=== PATIENT | female | born 1950 | race Caucasian/White ===

== ENCOUNTER 2016-11-06 12:48 | Emergency (ER) | payer OTHER ==
--- NOTE | 2016-11-06 15:56 | ED NURSING NOTES ---
Clinical Report - Nurses [facility] [place] [address] 11/06/2016 12:56 [id number] TRI[facility] Triage time 13:Nov 06 2016. Acuity: LEVEL 3. Chief Complaint: ABDOMINAL PAIN. Alert. MELISSA COMA SCORE: [place] Coma Scale: 15- eyes open spontaneously (4); best verbal response- oriented x 4 (5); best motor response- obeys commands (6). --13:18 Bola Jones R.N. 13:06 11/06/16. BP: 179/99. HR: 95. RR: 16. O2 saturation: 95% on room air. Temp: 97.9 F (oral). Pain level now: 10. --13:18 Bola Jones R.N. Weight: 127 kg stated. Height/Length: 63 inches Per Patient. BMI: 49.6. --13:07 Bola Jones R.N. Medications Abilify Oral (Tablet 10 mg) 1 tablet, daily. Effexor XR Oral 75 mg x 2 daily. --13:10 Bola Jones R.N. Lisinopril Oral 30 mg, daily. --13:10 Bola Jones R.N. Allergies Codeine. Moderate(nausea) Compazine. Definite Severe(Anaphylaxis) --13:13 Bola Jones R.N. Medication/allergy information source: the patient. --13:18 Bola Jones R.N. History Arrived by private vehicle. Historian: patient. Unaccompanied. Primary physician (Cayla ). ( (R) Flank Pain.). Onset. (about 3 days ago). Last oral intake by patient was (about 6 hours ago). Treatment [employer] GIN: None. PAST MEDICAL HX: Immunizations: status is unknown. The patient is post-menopausal. SOCIAL HX: Former smoker, end date 2000. History of drug use: marijuana. No alcohol use. No recent travel. No infectious disease exposure. ABUSE ASSESSMENT: No report of abuse. FALL RISK ASSESSMENT: Fall risk assessment completed. No fall risk identified. NUTRITIONAL RISK ASSESSMENT: The nutritional risk assessment revealed no deficiencies. FUNCTIONAL ASSESSMENT: Functional assessment: no impairments noted. LEARNING NEEDS ASSESSMENT: The learning needs assessment revealed no barriers. SKIN INTEGRITY ASSESSMENT: Skin integrity risk assessment completed. No skin integrity risk identified. --13:18 Bola Jones R.N. PROBLEMS: Bipolar Disorder. --13:15 Bola Jones R.N. ADDITIONAL SURGERIES: . Lap Banding. --13:15 Bola Jones R.N. Interventions ID band on patient. To treatment room. --13:18 Bola Jones R.N. PHYSICAL ASSESSMENT Ambulatory to room. GENERAL / NEURO / PSYCH: Alert. Oriented X 4. HEENT: Mucous membranes are pink. RESPIRATORY: Respirations not labored. CVS: Normal sinus rhythm noted. GI / : Abdomen soft. Bowel sounds within normal limits. SKIN: Skin is warm and dry. --13:19 Bola Jones R.N. NURSING PROGRESS NOTES Patient gowned. Reassurance given to the patient. Patient identifiers checked. Call light placed in reach. Side rails up x 1. Patient ready for evaluation- chart flagged and ED physician notified. --13:19 Bola Jones R.N. 13:43 11/06/2016 Started bag #1 1000 mL IV Fluids IV NS (Saline); at 1000 mL/hr over 60 minute(s) via site #1 via IV pump. Allergies verified and confirmed 5 rights. IV patency established. IV site checked: no pain, redness, or swelling. IV flushed thoroughly pre- and post-medication administration. --14:09 Bola Jones R.N. 13:53 11/06/2016 Site #1 started via IV in the right forearm with an 20g angiocath, with aseptic technique and good blood return; one attempt. Blood drawn: rainbow set. Labeled in the presence of the patient and sent to the lab. Saline lock flushed with 10 mL saline. --14:08 Bola Jones R.N. 14:10 11/06/2016 Toradol IVP 30 mg given over 2 minute(s) via site #1. Allergies verified and confirmed 5 rights. IV patency established. IV site checked: no pain, redness, or swelling. IV flushed thoroughly pre- and post-medication administration. IVP given by RN. --14:10 Bola Jones R.N. 14:58 11/06/16. BP: 140/85. HR: 84. RR: 16. O2 saturation: 98% on room air. --14:59 Bola Jones R.N. 17:03 11/06/2016 IV Fluids IV NS Discontinued: bag #1 infused. Total amount infused: 1000 mL. IV patency established. IV site checked: no pain, redness, or swelling. IV flushed thoroughly. --17:13 Rusty Connolly R.N. 17:07 11/06/2016 Hydrocodone-APAP (Hydrocodone-Acetaminophen) PO 5/325 mg Tablets 1 tab given. Allergies verified, confirmed 5 rights and sedative warning given to the patient. --17:12 Rusty Connolly R.N. DISPOSITION / DISCHARGE 17:05 11/06/2016 Site #1 removed upon discharge. Bandaid applied. --17:10 Rusty Connolly R.N. No learning barriers present. Discharge instructions provided and reviewed with the patient. Reviewed medication(s) side effects, dosing and course information. Prescription(s) given to the patient. Patient verbalized understanding. Written instructions provided in Telugu. The patient was discharged by the nurse practitioner. She was discharged home. She left the Emergency Department ambulatory and via private vehicle. ( PT dc only by this RN). --17:11 Rusty Connolly R.N. 17:10 11/06/16. BP: 153/74. HR: 84. RR: 15. O2 saturation: 98%. Temp: 97.8 F. Pain level now: 09/25. --17:11 Rusty Connolly R.N. Locked/Released at 11/06/2016 20:51 by Bola Jones R.N.
--- NOTE | 2016-11-06 15:56 | ED ORDER SUMMARY ---
..... Patient: DONNA GUZMAN OrderSheet [facility] VisitID: [id number] [address] [place] [address] 65y, F Registration Date/Time: 11/06/2016 ORDER SHEET Weight: 127.0 kg (stated) Allergies: Codeine, Compazine GENERAL ORDERS: CBC w Diff Urgent (14:00 11/06/2016 HBivens A.R.N.P.) (Ack 14:02 LNations ER Tech1) (14:09 JRomanelli R.N.) CMP Urgent (14:00 11/06/2016 HBivens A.R.N.P.) (Ack 14:03 LNations ER Tech1) (14:09 JRomanelli R.N.) UA-Culture if indicated Urgent (14:00 11/06/2016 HBivens A.R.N.P.) (Ack 14:03 LNations ER Tech1) (14:55 JRomanelli R.N.) Amylase Urgent (14:00 11/06/2016 HBivens A.R.N.P.) (Ack 14:03 LNations ER Tech1) (14:09 JRomanelli R.N.) Lipase Urgent (14:00 11/06/2016 HBivens A.R.N.P.) (Ack 14:03 LNations ER Tech1) (14:09 JRomanelli R.N.) CT Abd/Pel w Cont (No) (normal) Urgent (16:12 11/06/2016 HBivens A.R.N.P.) (Ack 16:13 LNations ER Tech1) (16:43 Johan) MEDICATION ORDERS: Hydrocodone-APAP PO 5/325 mg (NOW, HIGH ALERT MEDICATION) (16:56 11/06/2016 HBivens A.R.N.P.) (17:12 LennyKudesiree R.N.) IV FLUIDS: IV NS : initial bolus 1000 mL (1000 mL/hr), then none - (NOW) (14:00 11/06/2016 HBivens A.R.N.P.) (14:09 JRomanelli R.N.) Toradol IV 30 mg (NOW) (14:00 11/06/2016 SCOUTivens A.R.N.P.) (14:10 Christo R.N.) IV Saline Lock (14:00 11/06/2016 HBivens A.R.N.P.) (14:57 Christo R.N.) ORDER SHEET NOTES: [Electronically signed by Bola Jones R.N. (20:51 11/06/2016)] [Electronically signed by Nilsa KleinRSulmaN.PSulma (20:53 11/06/2016)] [Electronically locked/signed by Bola Jones R.N. (20:51 11/06/2016)]
--- NOTE | 2016-11-06 15:56 | ED NURSING NOTES ---
Clinical Report - Nurses [facility] [place] [address] 11/06/2016 12:56 [id number] TRI[facility] Triage time 13:Nov 06 2016. Acuity: LEVEL 3. Chief Complaint: ABDOMINAL PAIN. Alert. MELISSA COMA SCORE: [place] Coma Scale: 15- eyes open spontaneously (4); best verbal response- oriented x 4 (5); best motor response- obeys commands (6). --13:18 Bola Jones R.N. 13:06 11/06/16. BP: 179/99. HR: 95. RR: 16. O2 saturation: 95% on room air. Temp: 97.9 F (oral). Pain level now: 10. --13:18 Bola Jones R.N. Weight: 127 kg stated. Height/Length: 63 inches Per Patient. BMI: 49.6. --13:07 Bola Jones R.N. Medications Abilify Oral (Tablet 10 mg) 1 tablet, daily. Effexor XR Oral 75 mg x 2 daily. --13:10 Bola Jones R.N. Lisinopril Oral 30 mg, daily. --13:10 Bola Jones R.N. Allergies Codeine. Moderate(nausea) Compazine. Definite Severe(Anaphylaxis) --13:13 Bola Jones R.N. Medication/allergy information source: the patient. --13:18 Bola Jones R.N. History Arrived by private vehicle. Historian: patient. Unaccompanied. Primary physician (Cayla [place], [place]). ( (R) Flank Pain.). Onset. (about 3 days ago). Last oral intake by patient was (about 6 hours ago). 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 PAST MEDICAL HX: Immunizations: status is unknown. The patient is post-menopausal. SOCIAL HX: Former smoker, end date 2000. History of drug use: marijuana. No alcohol use. No recent travel. No infectious disease exposure. ABUSE ASSESSMENT: No report of abuse. FALL RISK ASSESSMENT: Fall risk assessment completed. No fall risk identified. NUTRITIONAL RISK ASSESSMENT: The nutritional risk assessment revealed no deficiencies. FUNCTIONAL ASSESSMENT: Functional assessment: no impairments noted. LEARNING NEEDS ASSESSMENT: The learning needs assessment revealed no barriers. SKIN INTEGRITY ASSESSMENT: Skin integrity risk assessment completed. No skin integrity risk identified. --13:18 Bola Jones R.N. PROBLEMS: Bipolar Disorder. --13:15 Bola Jones R.N. ADDITIONAL SURGERIES: . Lap Banding. --13:15 Bola Jones R.N. Interventions ID band on patient. To treatment room. --13:18 Bola Jones R.N. PHYSICAL ASSESSMENT Ambulatory to room. GENERAL / NEURO / PSYCH: Alert. Oriented X 4. HEENT: Mucous membranes are pink. RESPIRATORY: Respirations not labored. CVS: Normal sinus rhythm noted. GI / : Abdomen soft. Bowel sounds within normal limits. SKIN: Skin is warm and dry. --13:19 Bola Jones R.N. NURSING PROGRESS NOTES Patient gowned. Reassurance given to the patient. Patient identifiers checked. Call light placed in reach. Side rails up x 1. Patient ready for evaluation- chart flagged and ED physician notified. --13:19 Bola Jones R.N. 13:43 11/06/2016 Started bag #1 1000 mL IV Fluids IV NS (Saline); at 1000 mL/hr over 60 minute(s) via site #1 via IV pump. Allergies verified and confirmed 5 rights. IV patency established. IV site checked: no pain, redness, or swelling. IV flushed thoroughly pre- and post-medication administration. --14:09 Bola Jones R.N. 13:53 11/06/2016 Site #1 started via IV in the right forearm with an 20g angiocath, with aseptic technique and good blood return; one attempt. Blood drawn: rainbow set. Labeled in the presence of the patient and sent to the lab. Saline lock flushed with 10 mL saline. --14:08 Bola Jones R.N. 14:10 11/06/2016 Toradol IVP 30 mg given over 2 minute(s) via site #1. Allergies verified and confirmed 5 rights. IV patency established. IV site checked: no pain, redness, or swelling. IV flushed thoroughly pre- and post-medication administration. IVP given by RN. --14:10 Bola Jones R.N. 14:58 11/06/16. BP: 140/85. HR: 84. RR: 16. O2 saturation: 98% on room air. --14:59 Bola Jones R.N. 17:03 11/06/2016 IV Fluids IV NS Discontinued: bag #1 infused. Total amount infused: 1000 mL. IV patency established. IV site checked: no pain, redness, or swelling. IV flushed thoroughly. --17:13 Rusty Connolly R.N. 17:07 11/06/2016 Hydrocodone-APAP (Hydrocodone-Acetaminophen) PO 5/325 mg Tablets 1 tab given. Allergies verified, confirmed 5 rights and sedative warning given to the patient. --17:12 Rusty Connolly R.N. DISPOSITION / DISCHARGE 17:05 11/06/2016 Site #1 removed upon discharge. Bandaid applied. --17:10 Rusty Connolly R.N. No learning barriers present. Discharge instructions provided and reviewed with the patient. Reviewed medication(s) side effects, dosing and course information. Prescription(s) given to the patient. Patient verbalized understanding. Written instructions provided in Turkmen. The patient was discharged by the nurse practitioner. She was discharged home. She left the Emergency Department ambulatory and via private vehicle. ( PT dc only by this RN). --17:11 Rusty Connolly R.N. 17:10 11/06/16. BP: 153/74. HR: 84. RR: 15. O2 saturation: 98%. Temp: 97.8 F. Pain level now: 09/25. --17:11 Rusty Connolly R.N. Locked/Released at 11/06/2016 20:51 by Bola Jones R.N.
--- NOTE | 2016-11-06 15:56 | ED CLINICAL REPORT ---
Clinical Report - Physicians/Mid Levels [facility] [address] [place] [address] 11/06/2016 12:56 Patient: DONNA GUZMAN Time Seen: 13:30; initial patient contact, initial documentation, patient care assumed. Arrived- By private vehicle. Historian- patient. HISTORY OF PRESENT ILLNESS Chief Complaint: FLANK PAIN. At its maximum, severity described as severe. When seen in the E.D., severity described as severe. Modifying factors- worsened by movement, cough and deep breaths. Not relieved by anything. This started about 3 days ago and is still present. It was abrupt in onset and has been constant. It is described as "pain". No radiation. It is described as located in the right flank. No nausea, loss of appetite, vomiting or diarrhea. (possibly tweaked something on that side after sleeping funny on pillow). No recent travel. Similar symptoms previously: None. Recent medical care: Not recently seen/assessed. REVIEW OF SYSTEMS No constipation, black stools, hematemesis, difficulty with urination or pain with urination. No urinary frequency, fever, chest pain or difficulty breathing. Denies current . All systems otherwise negative, except as recorded above. PAST HISTORY See nurses notes. PROBLEMS: Bipolar Disorder. --13:15 Bola Jones R.N. ADDITIONAL SURGERIES: . Lap Banding. --13:15 Bola Jones RShanta. SOCIAL HISTORY Former smoker. History of occasional drug use: marijuana. No alcohol use. No recent travel. Is a local resident. FAMILY HISTORY Negative. ADDITIONAL NOTES The nursing notes have been reviewed with agreement regarding the chief complaint, HPI, ROS, PMH and patient medications and allergies. PHYSICAL EXAM Vital Signs: 11/06/2016 13:06 BP: 179/99. HR: 95. RR: 16. O2 saturation: 95%. Temp: 97.9 F. Pain level now: 5/10. Have been reviewed as abnormal and appear to be correct. Hypertensive. Heart rate normal. Respiratory rate normal. Temperature normal. Oxygen saturation normal. Appearance: Alert. Oriented X3. No acute distress. Eyes: Pupils equal, round and reactive to light. Eyes normal inspection. Neck: Normal inspection. Neck supple. CVS: Normal heart rate and rhythm. Heart sounds normal. Pulses normal. Respiratory: No respiratory distress. Breath sounds normal. Chest nontender. Abdomen: Soft and nontender. Bowel sounds normal. No organomegaly. No mass. Moderately obese. Back: Abnormal inspection. (decreased rom secondary to pain, limited flexion). Skin: Skin warm and dry. Normal skin color. No rash. Normal skin turgor. Extremities: Extremities exhibit normal ROM. No lower extremity edema. Neuro: Oriented X 3. No motor deficit. No sensory deficit. LABS, X-RAYS, AND EKG Abdominal CT: No acute disease. IMPRESSION: 1. Normal appendix 2. Mild bilateral renal cortical atrophy 3. Mild sigmoid diverticulosis 4. Status post lap band procedure and hysterectomy 5. Results discussed with Nilsa Klein. All CT scans at this facility use dose modulation, iterative reconstruction, and/or weight-based dosing when appropriate to reduce radiation dose to as low as reasonably achievable. Electronically Final signed by:Filemon Campbell MD 11/06/2016 4:52:34 PM. The study was interpreted by the radiologist and discussed with the radiologist. Interpretation time: 16:52. Laboratory Tests: UA-Culture if indicated: (CONY: 11/06/2016 14:45) ( MsgRcvd 11/06/2016 15:35) Final results Test Result Flag Units (Reference) URINE COLOR YELLOW URINE APPEARANCE CLEAR URINE GLUCOSE NEGATIVE (NEGATIVE) URINE BILIRUBIN NEGATIVE (NEGATIVE) URINE KETONE NEGATIVE (NEGATIVE) URINE SPECIFIC GRAVITY 1.020 (1.010-1.030) URINE PH 7.5 (5.0-8.0) URINE PROTEIN NEGATIVE (NEGATIVE) URINE UROBILINOGEN 0.2 EU/dL (0.2-1.0) URINE NITRITE NEGATIVE (NEGATIVE) URINE BLOOD NEGATIVE (NEGATIVE) URINE LEUK ESTERASE NEGATIVE (NEGATIVE) URINE RBC 0-1 rbc/hpf (0-1) URINE WBC 1-3 wbc/hpf (0-1) URINE EPITHELIAL CELLS 3-5 EPI/hpf (0-5) URINE BACTERIA FEW (1+) (NONE SEEN) URINE COMMENT CULT NOT INDICATED URINE CULTURES ARE SET-UP BASED ON THE FOLLOWING CRITERIA:POSITIVE NITRITEPOSITIVE LEUKOCYTE ESTERASEGREATER THAN 10 WHITE BLOOD CELLSMODERATE (2+) OR GREATER BACTERIA CBC w Diff: (CONY: 11/06/2016 13:30) ( [facility] 11/06/2016 14:08) Final results Test Result Flag Units (Reference) WHITE BLOOD COUNT 12.5 H K/uL (4.5-11.5) RED BLOOD COUNT 4.38 M/uL (4.00-5.20) HEMOGLOBIN 13.0 gm/dL (12.0-16.0) HEMATOCRIT 40.2 % (36.0-46.0) MEAN CELL VOLUME 92 fL (80-100) MEAN CORPUSCULAR HGB 30 pg (26-34) MEAN CORPUSCULAR HGB CONC 32 g/dL (31-37) RED CELL DISTRIBUTION WIDTH 15.3 H % (11.6-14.8) PLATELET COUNT 325 K/uL (150-400) NEUTROPHIL % 81.4 H % (50-75) LYMPH % 15.3 L % (25-40) MONO % 2.4 L % (3-14) EOSINOPHIL % 0.5 % (0-4) BASOPHIL % 0.4 % (0-2) CMP: (CONY: 11/06/2016 13:30) ( [facility] 11/06/2016 14:19) Final results Test Result Flag Units (Reference) GLUCOSE 127 H mg/dL (70-110) BUN 15 mg/dL (7-18) CREATININE 1.0 mg/dL (0.6-1.3) Estimated GFR 59.33 mL/min Estimated GFR- >60 mL/min Note: Persistent reduction over 3 months in eGFR<60 mL/min/1.73 m2 defines CKD. Patients with eGFR values>=60 mL/min/1.73 m2 may also have CKD if evidence ofpersistent proteinuria. Additional information may be foundat www.kidney.org. SODIUM 143 mmol/L (136-145) POTASSIUM 4.5 mmol/L (3.5-5.1) CHLORIDE 105 mmol/L (98-107) CARBON DIOXIDE 29 mmol/L (21-32) CALCIUM 9.1 mg/dL (8.5-10.1) TOTAL PROTEIN 6.7 g/dL (6.4-8.2) ALBUMIN 3.4 g/dL (3.3-5.0) BILIRUBIN, TOTAL 0.3 mg/dL (0.0-1.0) ALKALINE PHOSPHATASE 107 U/L (46-116) AST (SGOT) 15 U/L (15-37) ALT (SGPT) 18 U/L (12-78) LIPASE 231 U/L (73-393) AMYLASE 44 U/L (25-115) . PROGRESS AND PROCEDURES Course of Care: 1500. still no urine, asked nurse to cath pt for ua results and tx options discussed on whether to do ct or not, pt does not want to stay for ct, has to get home to help take care of blind father, agreed to return if anything changed, stated the med I gave her instantly took away her pain, she can move and twist now without hurting nurse Bola informing me that he spoke to pt and got her to change her mind about ct, because he overheard her on phone telling someone we didn't know what was wrong with her. 11/06/2016 14:58 BP: 140/85. HR: 84. RR: 16. O2 saturation: 98%. Vital Signs: have been reviewed as normal and appear to be correct. Patient counseled in person regarding the patient's stable condition, test results and diagnosis. 16:52. Differential Diagnosis: I considered gastritis, gastroenteritis, peptic ulcer disease, gastroesophageal reflux disease, acute appendicitis, diverticulitis, colon cancer, ulcerative colitis, Crohn's disease, biliary colic, cholecystitis, cholelithiasis, hepatitis, pancreatitis, common bile duct obstruction, urinary tract infection, ureterolithiasis and viral syndrome as a possible cause of abdominal pain in this patient. This is a partial list of diagnoses considered. Above considerations are based on history, physical exam, reassessment and laboratory data. Differential diagnosis was discussed with patient. Disposition: Discharged home in good and improved condition (15:55). Condition: good and stable. CLINICAL IMPRESSION Acute right flank pain INSTRUCTIONS Warnings: GENERAL WARNINGS: Return or contact your physician immediately if your condition worsens or changes unexpectedly, if not improving as expected, or if other problems arise. SPECIFICALLY, return if you develop pain in the abdomen or pelvis, fever, the inability to keep fluids down, blood in vomitus, blood in diarrhea, fainting or lightheadedness. Prescription Medications: Ultram 50 mg tablets: take 1-2 orally every 6 hours as needed for pain. Dispense twenty (20). No refills. Substitution is permissible. Follow-up: Follow up with your doctor in about two days even if well. Call for an appointment. Summary of care provided to patient. Understanding of the discharge instructions verbalized by patient. (Electronically signed by Nilsa Klein A.R.N.P. 11/06/2016 20:53)
--- NOTE | 2016-11-06 15:56 | ED ORDER SUMMARY ---
..... Patient: DONNA GUZMAN OrderSheet [facility] VisitID: [id number] [address] [place] [address] 65y, F Registration Date/Time: 11/06/2016 ORDER SHEET Weight: 127.0 kg (stated) Allergies: Codeine, Compazine GENERAL ORDERS: CBC w Diff Urgent (14:00 11/06/2016 HBivens A.R.N.P.) (Ack 14:02 LNations ER Tech1) (14:09 JRomanelli R.N.) CMP Urgent (14:00 11/06/2016 HBivens A.R.N.P.) (Ack 14:03 LNations ER Tech1) (14:09 JRomanelli R.N.) UA-Culture if indicated Urgent (14:00 11/06/2016 HBivens A.R.N.P.) (Ack 14:03 LNations ER Tech1) (14:55 JRomanelli R.N.) Amylase Urgent (14:00 11/06/2016 HBivens A.R.N.P.) (Ack 14:03 LNations ER Tech1) (14:09 JRomanelli R.N.) Lipase Urgent (14:00 11/06/2016 HBivens A.R.N.P.) (Ack 14:03 LNations ER Tech1) (14:09 JRomanelli R.N.) CT Abd/Pel w Cont (No) (normal) Urgent (16:12 11/06/2016 HBivens A.R.N.P.) (Ack 16:13 LNations ER Tech1) (16:43 Johan) MEDICATION ORDERS: Hydrocodone-APAP PO 5/325 mg (NOW, HIGH ALERT MEDICATION) (16:56 11/06/2016 HBivens A.R.N.P.) (17:12 LennyKudesiree R.N.) IV FLUIDS: IV NS : initial bolus 1000 mL (1000 mL/hr), then none - (NOW) (14:00 11/06/2016 HBivens A.R.N.P.) (14:09 JRomanelli R.N.) Toradol IV 30 mg (NOW) (14:00 11/06/2016 SCOUTivens A.R.N.P.) (14:10 Christo R.N.) IV Saline Lock (14:00 11/06/2016 HBivens A.R.N.P.) (14:57 Christo R.N.) ORDER SHEET NOTES: [Electronically signed by Bola Jones R.N. (20:51 11/06/2016)] [Electronically signed by Nilsa KleinRSulmaN.PSulma (20:53 11/06/2016)] [Electronically locked/signed by Bola Jones R.N. (20:51 11/06/2016)]
--- NOTE | 2016-11-06 16:53 | DIAGNOSTIC IMAGING REPORT ---
PROCEDURE: CT ABD/PELVIS WITH CONTRAST CLINICAL INDICATION: Right flank and lower quadrant pain. TECHNIQUE: 145 ml of Isovue 300 were injected intravenously and axial images were obtained of the entire abdomen and pelvis with sagittal and coronal reformations. COMPARISON: None. FINDINGS: Minor bibasilar scarring. Heart size is normal. ABDOMEN: Status post lap band procedure. Liver, gallbladder, pancreas, spleen and adrenal glands are normal. Mild bilateral renal cortical atrophy. No evidence of renal mass or hydronephrosis. Minor atherosclerosis. Nonspecific bowel gas pattern. PELVIS: Normal appendix. Mild sigmoid diverticulosis. Hysterectomy. Normal bladder. No pelvic mass, inflammatory changes or free fluid. Mild degenerative changes of the spine. IMPRESSION: 1. Normal appendix 2. Mild bilateral renal cortical atrophy 3. Mild sigmoid diverticulosis 4. Status post lap band procedure and hysterectomy 5. Results discussed with Nilsa Klein. All CT scans at this facility use dose modulation, iterative reconstruction, and/or weight-based dosing when appropriate to reduce radiation dose to as low as reasonably achievable.
--- NOTE | 2016-11-06 20:53 | ED DISCHARGE INSTRUCTIONS ---
Patient: DONNA GUZMAN General Instructions [facility] VisitID: [id number] [place] [address] 65y, F Registration Date/Time: 11/06/2016 Acute right flank pain INSTRUCTIONS Warnings: GENERAL WARNINGS: Return or contact your physician immediately if your condition worsens or changes unexpectedly, if not improving as expected, or if other problems arise. SPECIFICALLY, return if you develop pain in the abdomen or pelvis, fever, the inability to keep fluids down, blood in vomitus, blood in diarrhea, fainting or lightheadedness. Prescription Medications: Ultram 50 mg tablets: take 1-2 orally every 6 hours as needed for pain. Dispense twenty (20). No refills. Substitution is permissible. Follow-up: Follow up with your doctor in about two days even if well. Call for an appointment. Summary of care provided to patient. Understanding of the discharge instructions verbalized by patient. ADDITIONAL INFORMATION Flank Pain[Uncertain Cause] The flank is the area between the upper abdomen and the back. Pain here is often related to the kidneyan infection or a kidney stone. Other causes of flank pain include spinal arthritis, pinched nerve from a disk injury, back muscle strain or spasm. The cause of your flank pain is not certain and further tests may be needed. Home Care: You may use acetaminophen (Tylenol) or ibuprofen (Motrin, Advil) to control pain, unless another medicine was prescribed. [NOTE: If you have chronic liver or kidney disease or ever had a stomach ulcer or GI bleeding, talk with your doctor before using these medicines.] If the cause of your pain is coming from the muscles, ice or heat may give relief. During the first two days after injury, apply an ICE PACK to the painful area for 20 minutes every 2-4 hours. This will reduce swelling and pain. HEAT (hot shower, hot bath or heating pad) works well for muscle spasm. You can start with ice, then switch to heat after two days. Some patients feel best alternating ice and heat treatments. Use the one method that feels the best to you. Follow Up with your doctor or as advised by our staff for further evaluation if your symptoms are not improving over the next few days. Return Promptly or contact your doctor if any of the following occur: Repeated vomiting Fever of 100.4F (38C) or higher, or as directed by your healthcare provider Increasing flank pain Pain that spreads to the front of the abdomen Dizziness, weakness or fainting Blood in your urine Burning with urination or frequent urination Increasing pain in the leg Numbness or weakness in the leg Tramadol Hydrochloride Oral tablet What is this medicine? TRAMADOL (TRA ma dole) is a pain reliever. It is used to treat moderate to severe pain in adults. How should I use this medicine? Take this medicine by mouth with a full glass of water. Follow the directions on the prescription label. If the medicine upsets your stomach, take it with food or milk. Do not take more medicine than you are told to take. Talk to your bleach boiler puller regarding the use of this medicine in children. Special care may be needed. What side effects may I notice from receiving this medicine? Side effects that you should report to your doctor or health morning caregiver as soon as possible: allergic reactions like skin rash, itching or hives, swelling of the face, lips, or tongue breathing difficulties, wheezing confusion itching light headedness or fainting spells redness, blistering, peeling or loosening of the skin, including inside the mouth seizures Side effects that usually do not require medical attention (report to your doctor or health morning caregiver if they continue or are bothersome): constipation dizziness drowsiness headache nausea, vomiting What may interact with this medicine? Do not take this medicine with any of the following medications: MAOIs like Carbex, Eldepryl, Marplan, Nardil, and Parnate This medicine may also interact with the following medications: alcohol or medicines that contain alcohol antihistamines benzodiazepines bupropion carbamazepine or oxcarbazepine clozapine cyclobenzaprine digoxin furazolidone linezolid medicines for depression, anxiety, or psychotic disturbances medicines for migraine headache like almotriptan, eletriptan, frovatriptan, naratriptan, rizatriptan, sumatriptan, zolmitriptan medicines for pain like pentazocine, buprenorphine, butorphanol, meperidine, nalbuphine, and propoxyphene medicines for sleep muscle relaxants naltrexone phenobarbital phenothiazines like perphenazine, thioridazine, chlorpromazine, mesoridazine, fluphenazine, prochlorperazine, promazine, and trifluoperazine procarbazine warfarin What if I miss a dose? If you miss a dose, take it as soon as you can. If it is almost time for your next dose, take only that dose. Do not take double or extra doses. Where should I keep my medicine? Keep out of the reach of children. Store at room temperature between 15 and 30 degrees C (59 and 86 degrees F). Keep container tightly closed. Throw away any unused medicine after the expiration date. What should I tell my health care provider before I take this medicine? They need to know if you have any of these conditions: brain tumor depression drug abuse or addiction head injury if you frequently drink alcohol containing drinks kidney disease or trouble passing urine liver disease lung disease, asthma, or breathing problems seizures or epilepsy suicidal thoughts, plans, or attempt; a previous suicide attempt by you or a family member an unusual or allergic reaction to tramadol, codeine, other medicines, foods, dyes, or preservatives or trying to get breast-feeding What should I watch for while using this medicine? Tell your doctor or health morning caregiver if your pain does not go away, if it gets worse, or if you have new or a different type of pain. You may develop tolerance to the medicine. Tolerance means that you will need a higher dose of the medicine for pain relief. Tolerance is normal and is expected if you take this medicine for a long time. Do not suddenly stop taking your medicine because you may develop a severe reaction. Your body becomes used to the medicine. This does NOT mean you are addicted. Addiction is a behavior related to getting and using a drug for a non-medical reason. If you have pain, you have a medical reason to take pain medicine. Your doctor will tell you how much medicine to take. If your doctor wants you to stop the medicine, the dose will be slowly lowered over time to avoid any side effects. You may get drowsy or dizzy. Do not drive, use machinery, or do anything that needs mental alertness until you know how this medicine affects you. Do not stand or sit up quickly, especially if you are an older patient. This reduces the risk of dizzy or fainting spells. Alcohol can increase or decrease the effects of this medicine. Avoid alcoholic drinks. You may have constipation. Try to have a bowel movement at least every 2 to 3 days. If you do not have a bowel movement for 3 days, call your doctor or health morning caregiver. Your mouth may get dry. Chewing sugarless gum or sucking hard candy, and drinking plenty of water may help. Contact your doctor if the problem does not go away or is severe. You have been given the following additional information: Flank Pain, Uncertain Cause Tramadol Hydrochloride Oral tablet (Electronically signed by Nilsa Klein A.R.N.P. 11/06/2016 20:53)
--- NOTE | 2016-11-06 20:53 | ED DISCHARGE INSTRUCTIONS ---
Patient: DONNA GUZMAN General Instructions [facility] VisitID: [id number] [place] [address] 65y, F Registration Date/Time: 11/06/2016 Acute right flank pain INSTRUCTIONS Warnings: GENERAL WARNINGS: Return or contact your physician immediately if your condition worsens or changes unexpectedly, if not improving as expected, or if other problems arise. SPECIFICALLY, return if you develop pain in the abdomen or pelvis, fever, the inability to keep fluids down, blood in vomitus, blood in diarrhea, fainting or lightheadedness. Prescription Medications: Ultram 50 mg tablets: take 1-2 orally every 6 hours as needed for pain. Dispense twenty (20). No refills. Substitution is permissible. Follow-up: Follow up with your doctor in about two days even if well. Call for an appointment. Summary of care provided to patient. Understanding of the discharge instructions verbalized by patient. ADDITIONAL INFORMATION Flank Pain[Uncertain Cause] The flank is the area between the upper abdomen and the back. Pain here is often related to the kidneyan infection or a kidney stone. Other causes of flank pain include spinal arthritis, pinched nerve from a disk injury, back muscle strain or spasm. The cause of your flank pain is not certain and further tests may be needed. Home Care: You may use acetaminophen (Tylenol) or ibuprofen (Motrin, Advil) to control pain, unless another medicine was prescribed. [NOTE: If you have chronic liver or kidney disease or ever had a stomach ulcer or GI bleeding, talk with your doctor before using these medicines.] If the cause of your pain is coming from the muscles, ice or heat may give relief. During the first two days after injury, apply an ICE PACK to the painful area for 20 minutes every 2-4 hours. This will reduce swelling and pain. HEAT (hot shower, hot bath or heating pad) works well for muscle spasm. You can start with ice, then switch to heat after two days. Some patients feel best alternating ice and heat treatments. Use the one method that feels the best to you. Follow Up with your doctor or as advised by our staff for further evaluation if your symptoms are not improving over the next few days. Return Promptly or contact your doctor if any of the following occur: Repeated vomiting Fever of 100.4F (38C) or higher, or as directed by your healthcare provider Increasing flank pain Pain that spreads to the front of the abdomen Dizziness, weakness or fainting Blood in your urine Burning with urination or frequent urination Increasing pain in the leg Numbness or weakness in the leg Tramadol Hydrochloride Oral tablet What is this medicine? TRAMADOL (TRA ma dole) is a pain reliever. It is used to treat moderate to severe pain in adults. How should I use this medicine? Take this medicine by mouth with a full glass of water. Follow the directions on the prescription label. If the medicine upsets your stomach, take it with food or milk. Do not take more medicine than you are told to take. Talk to your exerciser horse regarding the use of this medicine in children. Special care may be needed. What side effects may I notice from receiving this medicine? Side effects that you should report to your doctor or health critical care cns as soon as possible: allergic reactions like skin rash, itching or hives, swelling of the face, lips, or tongue breathing difficulties, wheezing confusion itching light headedness or fainting spells redness, blistering, peeling or loosening of the skin, including inside the mouth seizures Side effects that usually do not require medical attention (report to your doctor or health critical care cns if they continue or are bothersome): constipation dizziness drowsiness headache nausea, vomiting What may interact with this medicine? Do not take this medicine with any of the following medications: MAOIs like Carbex, Eldepryl, Marplan, Nardil, and Parnate This medicine may also interact with the following medications: alcohol or medicines that contain alcohol antihistamines benzodiazepines bupropion carbamazepine or oxcarbazepine clozapine cyclobenzaprine digoxin furazolidone linezolid medicines for depression, anxiety, or psychotic disturbances medicines for migraine headache like almotriptan, eletriptan, frovatriptan, naratriptan, rizatriptan, sumatriptan, zolmitriptan medicines for pain like pentazocine, buprenorphine, butorphanol, meperidine, nalbuphine, and propoxyphene medicines for sleep muscle relaxants naltrexone phenobarbital phenothiazines like perphenazine, thioridazine, chlorpromazine, mesoridazine, fluphenazine, prochlorperazine, promazine, and trifluoperazine procarbazine warfarin What if I miss a dose? If you miss a dose, take it as soon as you can. If it is almost time for your next dose, take only that dose. Do not take double or extra doses. Where should I keep my medicine? Keep out of the reach of children. Store at room temperature between 15 and 30 degrees C (59 and 86 degrees F). Keep container tightly closed. Throw away any unused medicine after the expiration date. What should I tell my health care provider before I take this medicine? They need to know if you have any of these conditions: brain tumor depression drug abuse or addiction head injury if you frequently drink alcohol containing drinks kidney disease or trouble passing urine liver disease lung disease, asthma, or breathing problems seizures or epilepsy suicidal thoughts, plans, or attempt; a previous suicide attempt by you or a family member an unusual or allergic reaction to tramadol, codeine, other medicines, foods, dyes, or preservatives or trying to get breast-feeding What should I watch for while using this medicine? Tell your doctor or health critical care cns if your pain does not go away, if it gets worse, or if you have new or a different type of pain. You may develop tolerance to the medicine. Tolerance means that you will need a higher dose of the medicine for pain relief. Tolerance is normal and is expected if you take this medicine for a long time. Do not suddenly stop taking your medicine because you may develop a severe reaction. Your body becomes used to the medicine. This does NOT mean you are addicted. Addiction is a behavior related to getting and using a drug for a non-medical reason. If you have pain, you have a medical reason to take pain medicine. Your doctor will tell you how much medicine to take. If your doctor wants you to stop the medicine, the dose will be slowly lowered over time to avoid any side effects. You may get drowsy or dizzy. Do not drive, use machinery, or do anything that needs mental alertness until you know how this medicine affects you. Do not stand or sit up quickly, especially if you are an older patient. This reduces the risk of dizzy or fainting spells. Alcohol can increase or decrease the effects of this medicine. Avoid alcoholic drinks. You may have constipation. Try to have a bowel movement at least every 2 to 3 days. If you do not have a bowel movement for 3 days, call your doctor or health critical care cns. Your mouth may get dry. Chewing sugarless gum or sucking hard candy, and drinking plenty of water may help. Contact your doctor if the problem does not go away or is severe. You have been given the following additional information: Flank Pain, Uncertain Cause Tramadol Hydrochloride Oral tablet (Electronically signed by Nilsa Klein A.R.N.P. 11/06/2016 20:53)
--- NOTE | 2016-11-06 20:53 | ED MAR SUMMARY ---
..... Medication Administration Record [facility] [address] [place] [address] Patient: DONNA GUZMAN Visit ID: [id number] 65y, F Weight: 127.0 kg Height/Length: 63 in BMI: 49.6 ALLERGIES: Codeine, Compazine Start 13:43 11/06/2016 Bola Jones R.N., Stop 17:03 11/06/2016 Rusty Connolly R.N. Medication Administered: IV NS (SALINE), Dose: IV Fluids over 60 minute(s), Rate: 1000 mL/hr, Dispensed: 1000 mL bag, Site: #1. Medication Ordered: IV NS : initial bolus 1000 mL (1000 mL/hr), then none - (NOW). Given 14:10 11/06/2016 Bola Jones R.N. Medication Administered: TORADOL [IVP], Dose: 30 mg IVP over 2 minute(s), Site: #1 right forearm. Medication Ordered: Toradol IV 30 mg (NOW). Given 17:07 11/06/2016 Rusty Connolly RPoncho Medication Administered: HYDROCODONE-APAP [PO] (HYDROCODONE-ACETAMINOPHEN), Dose: 1 tab 5/325 mg Tablets PO. Medication Ordered: Hydrocodone-APAP PO 5/325 mg (NOW, HIGH ALERT MEDICATION).
--- NOTE | 2016-11-06 20:53 | ED MAR SUMMARY ---
..... Medication Administration Record [facility] [address] [place] [address] Patient: DONNA GUZMAN Visit ID: [id number] 65y, F Weight: 127.0 kg Height/Length: 63 in BMI: 49.6 ALLERGIES: Codeine, Compazine Start 13:43 11/06/2016 Bola Jones R.N., Stop 17:03 11/06/2016 Rusty Connolly R.N. Medication Administered: IV NS (SALINE), Dose: IV Fluids over 60 minute(s), Rate: 1000 mL/hr, Dispensed: 1000 mL bag, Site: #1. Medication Ordered: IV NS : initial bolus 1000 mL (1000 mL/hr), then none - (NOW). Given 14:10 11/06/2016 Bola Jones R.N. Medication Administered: TORADOL [IVP], Dose: 30 mg IVP over 2 minute(s), Site: #1 right forearm. Medication Ordered: Toradol IV 30 mg (NOW). Given 17:07 11/06/2016 Rusty Connolly RPoncho Medication Administered: HYDROCODONE-APAP [PO] (HYDROCODONE-ACETAMINOPHEN), Dose: 1 tab 5/325 mg Tablets PO. Medication Ordered: Hydrocodone-APAP PO 5/325 mg (NOW, HIGH ALERT MEDICATION).
--- NOTE | 2016-11-06 20:53 | ED MED RECONCILIATION SUMMARY ---
Patient: DONNA GUZMAN Medication Reconciliation Report [facility] VisitID: [id number] [address] [place] [address] 65y, F Registration Date/Time: 11/06/2016 Weight: 127.0 kg Height/Length: 63 in. BMI: 49.6 ALLERGIES: Codeine, Compazine The patient's Home Medications are listed below: THE FOLLOWING MEDICATIONS NEED TO BE RECONCILED: Abilify Oral (10 mg) 1 tablet, daily Effexor XR Oral 75 mg x 2 daily Lisinopril Oral 30 mg, daily The source(s) of the original Home Medication information: patient The following Medications were given to the patient in the Emergency Department: IV NS IV Fluids bolus 0, then 1000 mL/hr, administered: 11/06/2016 1:43:00 PM Toradol [IVP] IVP 30 mg, administered: 11/06/2016 2:10:00 PM Hydrocodone-APAP [PO] PO 1 tab, administered: 11/06/2016 5:07:00 PM The following Medications were prescribed to the patient: Ultram 50 mg tablets: take 1-2 orally every 6 hours as needed for pain. Dispense twenty (20). No refills. Substitution is permissible. -- Nilsa Klein A.R.N.P.
--- NOTE | 2016-11-06 20:53 | ED MED RECONCILIATION SUMMARY ---
Patient: DNONA GUZMAN Medication Reconciliation Report [facility] VisitID: [id number] [address] [place] [address] 65y, F Registration Date/Time: 11/06/2016 Weight: 127.0 kg Height/Length: 63 in. BMI: 49.6 ALLERGIES: Codeine, Compazine The patient's Home Medications are listed below: THE FOLLOWING MEDICATIONS NEED TO BE RECONCILED: Abilify Oral (10 mg) 1 tablet, daily Effexor XR Oral 75 mg x 2 daily Lisinopril Oral 30 mg, daily The source(s) of the original Home Medication information: patient The following Medications were given to the patient in the Emergency Department: IV NS IV Fluids bolus 0, then 1000 mL/hr, administered: 11/06/2016 1:43:00 PM Toradol [IVP] IVP 30 mg, administered: 11/06/2016 2:10:00 PM Hydrocodone-APAP [PO] PO 1 tab, administered: 11/06/2016 5:07:00 PM The following Medications were prescribed to the patient: Ultram 50 mg tablets: take 1-2 orally every 6 hours as needed for pain. Dispense twenty (20). No refills. Substitution is permissible. -- Nilsa Klein A.R.N.P.
== END 2016-11-06 17:13 | disposition home or self-care (01) ==
LOC: ED SRH 12:48
DX: R10.9 Unspecified abdominal pain (principal); F12.10 Cannabis abuse, uncomplicated; Z88.5 Allergy status to narcotic agent; Z88.8 Allergy status to other drugs, medicaments and biological substances
CPT/HCPCS: 90004; 90100; 92235; 92530; 95059